=== PATIENT | female | born 1955 | race Caucasian/White ===

== ENCOUNTER 2017-12-17 04:55 | Outpatient (CLI) | payer BC, SELFPAY | END 2017-12-17 23:59 | disposition home or self-care (01) | LOC: DIABETIC 04:55 | PROVIDERS: ATTEND Specialist | DX: E11.9 Type 2 diabetes mellitus without complications (principal) | CPT/HCPCS: G0108 ==

== ENCOUNTER 2018-03-04 04:43 | Outpatient (CLI) | payer BC | END 2018-03-04 23:59 | disposition home or self-care (01) | LOC: DIABETIC 04:43 | PROVIDERS: ATTEND Specialist | DX: E11.9 Type 2 diabetes mellitus without complications (principal) | CPT/HCPCS: G0108 ==

== ENCOUNTER 2018-06-13 02:13 | Outpatient (CLI) | payer BC | END 2018-06-13 23:59 | disposition home or self-care (01) | LOC: DIABETIC 02:13 | PROVIDERS: ATTEND Specialist | DX: E11.9 Type 2 diabetes mellitus without complications (principal); Z88.2 Allergy status to sulfonamides; Z79.4 Long term (current) use of insulin | CPT/HCPCS: G0108 ==

== ENCOUNTER 2018-12-17 03:10 | Outpatient (CLI) | payer BC | END 2018-12-17 23:59 | disposition home or self-care (01) | LOC: DIABETIC 03:10 | PROVIDERS: ATTEND Specialist | DX: E10.65 Type 1 diabetes mellitus with hyperglycemia (principal); Z79.4 Long term (current) use of insulin; Z88.2 Allergy status to sulfonamides | CPT/HCPCS: G0108 ==

== ENCOUNTER 2019-03-03 04:30 | Outpatient (CLI) | payer BC | END 2019-03-03 23:59 | disposition home or self-care (01) | LOC: DIABETIC 04:30 | PROVIDERS: ATTEND Specialist | DX: E10.65 Type 1 diabetes mellitus with hyperglycemia (principal); Z79.4 Long term (current) use of insulin; Z88.2 Allergy status to sulfonamides | CPT/HCPCS: G0108 ==

== ENCOUNTER 2019-06-17 00:53 | Outpatient (CLI) | payer BC | END 2019-06-17 23:59 | disposition home or self-care (01) | LOC: DIABETIC 00:53 | PROVIDERS: ATTEND Specialist | DX: E10.65 Type 1 diabetes mellitus with hyperglycemia (principal); Z79.4 Long term (current) use of insulin; Z88.2 Allergy status to sulfonamides | CPT/HCPCS: G0108 ==

== ENCOUNTER 2019-09-17 01:12 | Outpatient (CLI) | payer BC | END 2019-09-17 23:59 | disposition home or self-care (01) | LOC: DIABETIC 01:12 | PROVIDERS: ATTEND Specialist | DX: E10.65 Type 1 diabetes mellitus with hyperglycemia (principal); Z79.4 Long term (current) use of insulin | CPT/HCPCS: G0108 ==